=== PATIENT | female | born 2000 | race Caucasian/White ===

== ENCOUNTER 2021-07-19 22:30 | Emergency (ER) | payer OTHER, SELFPAY ==
[2021-07-19 23:26] LABS: Absolute Lymphocytes (CBC) 3.2 K/uL (0.7-4.9); Basophils % 0.7 % (0-1.3); Hematocrit 36.5 % (36.0-45.0); MPV 8.6 fL (7.6-11.3); RBC Red Blood Cell Count 4.73 M/uL (3.86-4.86)
[2021-07-19 23:43] LABS: ALT/SGPT 27 U/L (12-78); AST/SGOT 17 U/L (15-37); Albumin 3.2 g/dL (3.4-5.0); Alkaline Phosphatase 38 U/L (45-117); BUN Blood Urea Nitrogen 7 mg/dL (7-18); Bicarbonate 28 mmol/L (21-32); Bilirubin Direct < 0.1 mg/dL (0-0.2); Bilirubin Total 0.3 mg/dL (0.2-1.0); Glucose Level 90 mg/dL (74-106); Lipase 88 U/L (73-393); Potassium 3.4 mmol/L (3.5-5.1); Protein, Total 6.8 g/dL (6.4-8.2); Sodium Level 143 mmol/L (136-145)
[2021-07-20] MEDS ORDERED: MORPHINE 4 MG/ML SYR ONE ×2 (00:25→03:14)
[2021-07-20] MEDS ORDERED: NA CHLORIDE 0.9% 1,000 ML ONE (00:25)
[2021-07-20] MEDS ORDERED: ONDANSETRON 4 MG/2 ML VIAL ONE (00:25)
[2021-07-20 00:41] LABS: Urine Blood Trace-intact (Negative); Urine Glucose Negative (Negative); Urine Protein Negative (Negative); Urine Specific Gravity 1.025 (1.005-1.030); Urine pH 7.5 (5.0-7.0)
[2021-07-20 01:16] LABS: Urine Specific Gravity/Preg 1.025 (1.005-1.030)
--- NOTE | 2021-07-20 02:30 | EDPHYS ---
Physician Documentation [facility] Name: Yessica Isbell Age: 20 yrs Sex: Female : 2000 Arrival Date: 07/19/2021 Time: 22:33 Bed 20 Private MD: ED Physician Cl Garcia HPI: 07/19 23:14 This 20 yrs old Female presents to ER via Ambulatory with complaints of cp Abdominal Pain. 07/20 23:14 The patient presents with abdominal pain in the periumbilical area. cp 23:14 Onset: The symptoms/episode began/occurred yesterday, and became worse today. cp Associated signs and symptoms: Pertinent negatives: constipation, diarrhea, fever, vomiting. Patient reports history of umbilical abscess. Started having pain to umbilical area yesterday and concerned about development of abscess. 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 - Social history:: Smoking status: Patient denies any tobacco usage or history of. ROS: 23:20 Abdomen/GI: Positive for abdominal pain, of the umbilical area, Negative for vomiting, cp diarrhea, constipation. 23:20 Eyes: Negative for injury, pain, redness, and discharge. cp 23:20 Constitutional: Negative for body aches, chills, fever. 23:20 Respiratory: Negative for cough, shortness of breath, wheezing. 23:20 Skin: Negative for cellulitis, rash. 23:20 All other systems are negative. Exam: 23:25 Constitutional: The patient appears in no acute distress, alert, awake, non-toxic, well cp developed, well nourished, obese, uncomfortable. 23:25 Head/Face: Normocephalic, atraumatic. cp 23:25 Eyes: Periorbital structures: appear normal, Conjunctiva: normal, no exudate, no cp injection, Sclera: no appreciated abnormality, Lids and lashes: appear normal, bilaterally. 23:25 ENT: External ear(s): are unremarkable, Nose: is normal, Mouth: Lips: moist, Oral mucosa: moist, Posterior pharynx: Airway: no evidence of obstruction, patent. 23:25 Chest/axilla: Inspection: normal. cp 23:25 Cardiovascular: Rate: normal. 23:25 Respiratory: the patient does not display signs of respiratory distress, Respirations: normal, no use of accessory muscles, no retractions, labored breathing, is not present. 23:25 Abdomen/GI: Inspection: obese Bowel sounds: active, all quadrants, Palpation: soft, in all quadrants, severe abdominal tenderness, in the umbilical area, rebound tenderness, is not appreciated, voluntary guarding, is elicited in the umbilical area. 23:25 Back: pain, is absent, ROM is normal. 23:25 Skin: cellulitis, that is minimal, on the umbilical area, no rash present. Vital Signs: 22:46 BP 126 / 97; Pulse 82; Resp 18; Temp 98.2; Pulse Ox 99% on R/A; Weight 90.72 kg (R); lp1 Height 5 ft. 6 in. (167.64 cm); Pain 03/28; 07/20 01:45 BP 115 / 62; Pulse 69; Resp 20; Pulse Ox 97% on R/A; cc4 02:00 BP 101 / 69; Pulse 74; Resp 18; Pulse Ox 97% on R/A; cc4 03:00 BP 120 / 65; Pulse 82; Resp 18; Pulse Ox 99% on R/A; cc4 03:45 BP 116 / 73; Pulse 84; Resp 20; Temp 97.9; Pulse Ox 99% on R/A; cc4 07/19 22:46 Body Mass Index 32.28 (90.72 kg, 167.64 cm) lp1 MDM: 07/19 23:00 Patient medically screened. cp 07/20 02:28 Data reviewed: vital signs, nurses notes, lab test result(s), radiologic studies, CT cp scan, and as a result, I will discharge patient. 07/19 23:02 Order name: Basic Metabolic Panel; Complete Time: 23:45 cp 07/20 00:43 Interpretation: Normal except: K 3.4; CL 109; GFR 68. cp 07/19 23:02 Order name: CBC with Diff; Complete Time: 23:45 cp 07/20 01:25 Interpretation: Normal except: MCV 77.2; MCH 25.8. cp 07/19 23:02 Order name: Hepatic Function; Complete Time: 23:45 cp 07/19 23:02 Order name: Lipase; Complete Time: 23:45 cp 07/20 00:41 Order name: Urine Dipstick-Ancillary; Complete Time: 00:42 EDMS 07/20 00:51 Order name: Urine --Ancillary (enter results); Complete Time: 01:25 mw2 07/19 23:02 Order name: Urine Dipstick-Ancillary (obtain specimen); Complete Time: 01:21 cp 07/19 23:02 Order name: IV Saline Lock; Complete Time: 23:17 cp 07/19 23:48 Order name: CT Abd/Pelvis - IV Contrast Only cp 07/19 23:02 Order name: Labs collected and sent; Complete Time: 23:17 cp 07/19 23:02 Order name: Urine Test (obtain specimen); Complete Time: 01:21 cp Administered Medications: 07/19 23:30 Drug: NS 0.9% 1000 ml Route: IV; Rate: 1 bolus; Site: right forearm; cc4 07/20 03:45 Follow up: IV Status: Completed infusion; IV Intake: 1000ml cc4 04:25 Follow up: Response: No adverse reaction cc4 07/19 23:30 Drug: morphine 4 mg Route: IVP; Site: right forearm; cc4 07/20 03:45 Follow up: Response: No adverse reaction; Pain is decreased cc4 07/19 23:30 Drug: Zofran (Ondansetron) 4 mg Route: IVP; Site: right forearm; cc4 07/20 03:45 Follow up: Response: No adverse reaction; Nausea is decreased cc4 02:15 Drug: morphine 4 mg Route: IVP; Site: right forearm; cc4 03:45 Follow up: Response: No adverse reaction; Pain is decreased cc4 02:48 Drug: Clindamycin 900 mg Route: IVPB; Infused Over: 30 mins; Site: right forearm; cc4 03:45 Follow up: Response: No adverse reaction cc4 Disposition: 06:40 Co-signature as Attending Physician, Cl Garcia MD I agree with the assessment and sp3 plan of care. Disposition Summary: 07/20/21 02:29 Discharge Ordered Location: Home cp Problem: new cp Symptoms: have improved cp Condition: Stable cp Diagnosis - Cellulitis of abdominal wall - umbilical cp Followup: cp - With: Private Physician - When: 2 - 3 days - Reason: Recheck today's complaints Discharge Instructions: - Discharge Summary Sheet cp - Cellulitis, Adult cp Forms: - Medication Reconciliation Form cp - Thank You Letter cp - Antibiotic Education cp - Prescription Opioid Use cp Prescriptions: - Clindamycin HCl 300 mg Oral Capsule - take 1 capsule by ORAL route every 6 hours for 10 days; 40 capsule; Refills: 0, cp Product Selection Permitted - Tramadol 50 mg Oral Tablet - take 1 tablet by ORAL route every 8 hours as needed; 12 tablet; Refills: 0, cp Product Selection Permitted - Bactrim DS 800-160 mg Oral Tablet - take 1 tablet by ORAL route every 12 hours for 10 days; 20 tablet; Refills: 0, cp Product Selection Permitted Signatures: Dispatcher [employer] Farzana Jimenez RN RN lp1 Chet Bermeo PA PA cp Cl Garcia MD MD sp3 Megan Camacho RN RN cc4
--- NOTE | 2021-07-20 02:30 | ER ---
Nurse's Notes [facility] Name: Yessica Isbell Age: 20 yrs Sex: Female : 2000 Arrival Date: 07/19/2021 Time: 22:33 Bed 20 Private MD: Diagnosis: Cellulitis of abdominal wall-umbilical Presentation: 07/19 22:46 Chief complaint: Patient states: Hard abscess to umbilical area that she noticed lp1 yesterday, hx of abscess to site previously; Denies any fever or site drainage. Coronavirus screen: At this time, the client does not indicate any symptoms associated with coronavirus-19. Ebola Screen: No symptoms or risks identified at this time. Initial Sepsis Screen: Does the patient meet any 2 criteria? No. Patient's initial sepsis screen is negative. Does the patient have a suspected source of infection? No. Patient's initial sepsis screen is negative. Risk Assessment: Do you want to hurt yourself or someone else? Patient reports no desire to harm self or others. Onset of symptoms was July 19, 2021. 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 - Social history:: Smoking status: Patient denies any tobacco usage or history of. Screenin:48 Abuse screen: Denies threats or abuse. Denies injuries from another. Nutritional lp1 screening: No deficits noted. Tuberculosis screening: No symptoms or risk factors identified. Fall Risk None identified. Assessment: 23:22 General: Appears in no apparent distress. Behavior is calm, cooperative, appropriate lp1 for age. Pain: Complains of pain in umbilical area Pain currently is 7 out of 10 on a pain scale. Quality of pain is described as aching. Neuro: No deficits noted. Cardiovascular: No deficits noted. Respiratory: Respiratory effort is even, unlabored. GI: Abdomen is round Abdomen is tender to palpation in umbilical area. : No signs and/or symptoms were reported regarding the genitourinary system. EENT: No signs and/or symptoms were reported regarding the EENT system. Derm: Skin is pink, warm \\T\\ dry. Musculoskeletal: No deficits noted. 23:30 Reassessment: Patient appears in no apparent distress at this time. Resting quietly on cc4 stretcher with mother \\T\\ bedside; c/o umbilicus pain "5" on pain scale when questioned # 22 g saline lock intact right inner FA; IV NS hung to saline lock \\T\\ infusing \\T\\ open rate with no s/sx's of infiltration; medications given as ordered(see orders). 07/20 02:15 Reassessment: Patient appears in no apparent distress at this time. c/o umbilicus area cc4 pain 8/10 on pain scale; DEVI Ledbetter notified; morphine 4 mg given slow IVP. 02:48 Reassessment: Patient appears in no apparent distress at this time. Reports decreased cc4 pain to 4/10 on pain scale; clindamycin 900mg hung to saline lock right inner FA \\T\\ infusing with no difficulty. 03:30 Reassessment: IVPB clindamycin 900 mg completed, [place]. well; smiling \\T\\ talking; voices cc4 no complaints. Vital Signs: 07/19 22:46 BP 126 / 97; Pulse 82; Resp 18; Temp 98.2; Pulse Ox 99% on R/A; Weight 90.72 kg (R); lp1 Height 5 ft. 6 in. (167.64 cm); Pain 7/10; 07/20 01:45 BP 115 / 62; Pulse 69; Resp 20; Pulse Ox 97% on R/A; cc4 02:00 BP 101 / 69; Pulse 74; Resp 18; Pulse Ox 97% on R/A; cc4 03:00 BP 120 / 65; Pulse 82; Resp 18; Pulse Ox 99% on R/A; cc4 03:45 BP 116 / 73; Pulse 84; Resp 20; Temp 97.9; Pulse Ox 99% on R/A; cc4 07/19 22:46 Body Mass Index 32.28 (90.72 kg, 167.64 cm) lp1 ED Course: 07/19 22:33 Patient arrived in ED. as 22:48 Triage completed. lp1 22:48 Arm band placed on right wrist. lp1 22:49 Chet Bermeo PA is PHCP. cp 22:49 Cl Garcia MD is Attending Physician. cp 22:49 Patient has correct armband on for positive identification. lp1 23:06 Farzana Haywood, RN is Primary Nurse. lp1 23:17 Inserted saline lock: 22 gauge in right forearm, using aseptic technique. Blood ds4 collected. 07/20 01:23 CT Abd/Pelvis - IV Contrast Only In Process Unspecified. EDMS 03:45 No provider procedures requiring assistance completed. cc4 03:45 IV discontinued, intact, bleeding controlled, No redness/swelling at site. Pressure cc4 dressing applied. Administered Medications: 07/19 23:30 Drug: NS 0.9% 1000 ml Route: IV; Rate: 1 bolus; Site: right forearm; cc4 07/20 03:45 Follow up: IV Status: Completed infusion; IV Intake: 1000ml cc4 04:25 Follow up: Response: No adverse reaction cc4 07/19 23:30 Drug: morphine 4 mg Route: IVP; Site: right forearm; cc4 07/20 03:45 Follow up: Response: No adverse reaction; Pain is decreased cc4 07/19 23:30 Drug: Zofran (Ondansetron) 4 mg Route: IVP; Site: right forearm; cc4 07/20 03:45 Follow up: Response: No adverse reaction; Nausea is decreased cc4 02:15 Drug: morphine 4 mg Route: IVP; Site: right forearm; cc4 03:45 Follow up: Response: No adverse reaction; Pain is decreased cc4 02:48 Drug: Clindamycin 900 mg Route: IVPB; Infused Over: 30 mins; Site: right forearm; cc4 03:45 Follow up: Response: No adverse reaction cc4 Intake: 03:45 IV: 1000ml; Total: 1000ml. cc4 Outcome: 02:29 Discharge ordered by . cp 03:45 Discharged to home ambulatory. cc4 03:45 Condition: improved 03:45 Discharge instructions given to patient, Instructed on discharge instructions, follow up and referral plans. medication usage, Demonstrated understanding of instructions, follow-up care, medications, Prescriptions given X 3. 04:27 Patient left the ED. cc4 Signatures: Dispatcher [employer] EDWI Arianna Mena Laura, RN RN lp1 Jake Bills ds4 Chet Bermeo PA PA cp Cooper, Christie, RN RN cc4 Corrections: (The following items were deleted from the chart) 04:01 03:15 BP 116 / 73; Pulse 84bpm; Resp 20bpm; Pulse Ox 99% RA; Temp 97.9F; cc4 cc4
[2021-07-20] MEDS ORDERED: CLINDAMYCIN 900MG/D5W 900 MG/50 ML IVPB IV ONE (03:49)
[2021-07-20 04:38] VITALS: O2SAT 99
[2021-07-20 04:40] VITALS: BP 116/73; TEMP 97.9
--- NOTE | 2021-07-20 11:51 | RAD REPORT ---
EXAM DESCRIPTION: CT - Abdomen Pelvis W Contrast - 07/20/2021 6:05 am CLINICAL HISTORY: 20 years, Female, umbilical pain COMPARISON: None. CLINICAL HISTORY: Contrast-enhanced images of the abdomen and pelvis were performed utilizing 5 mm s lice thickness at 5 mm interval reconstruction from the lung bases to the ischial tuberosities after the administration of IV contrast. In addition multiplanar reformats in the coronal and sagittal plane were obtained and reviewed. This exam was performed according to our departmental dose-optimization protocol, which includes auto mated exposure control, adjustment of the mA and/or kV according to patient size and/or use of iterat marlen reconstruction technique. FINDINGS: The lung bases demonstrate to be clear. The liver, pancreas, spleen and adrenal glands demonstrate to be unremarkable, no focal lesions are n oted. Surgical clips within the gallbladder fossa correspond to previous cholecystectomy. There is no bilia ry duct dictation. The kidneys demonstrate normal uptake of contrast media. No evidence for nephrolithiasis and/or hydro nephrosis. Grossly the unopacified stomach, small bowel and large bowel demonstrate to be within normal limits. There is no evidence for bowel dilatation/or free air. The appendix is normal. The urinary bladder demonstrate to be unremarkable. The uterus is unremarkable. There are no adnexa l masses. The aorta demonstrate to be normal. There is no retroperitoneal lymphadenopathy. There is no evidence for ascites and/or significant abnormal fluid collections. The rest of the soft tissue and bony structures are within normal limits. Minimal haziness within the umbilical region superfici ally could correspond to edema an/or inflammation, this is best demonstrated on axial image 46/96 3-5 0/93. No definitive abscess formation is identified. IMPRESSION: Minimal haziness within the umbilical region superficially could correspond to edema an/ or inflammation. No definitive abscess formation is identified. Status post cholecystectomy. Otherwise unremarkable CT scan of the abdomen and pelvis. Electronically signed by: Fly Boogie MD 07/20/2021 1:40 AM CDT Due to temporary technical issues with the PACS/Fluency reporting system, reports are being signed by the in house radiologists without review as a courtesy to insure prompt reporting. The interpreting radiologist is fully responsible for the content of the report.
== END 2021-07-20 04:27 | disposition home or self-care (01) ==
LOC: ER 22:30
DX: L03.311 Cellulitis of abdominal wall (principal)
CPT/HCPCS: 36415; 74177; 80048; 80076; 81003; 81025; 83690; 85025; 96361; 96374; 96375; 99284